=== PATIENT | male | born 1995 | race Caucasian/White ===

== ENCOUNTER 2017-04-10 11:17 | Emergency (ER) | payer OTHER ==
[~2017-04-10] VITALS: Ht 167.6 cm; Wt 60.0 kg
[2017-04-10] MEDS ORDERED: LIDOCAINE 1%, 20ML ONE (11:19)
[2017-04-10] MEDS ORDERED: HYDROmorphone 1 MG/ML, 1ML ONE ×2 (11:19→12:45)
[2017-04-10] MEDS ORDERED: ONDANSETRON 2MG/ML, 2ML ONE (11:19)
[2017-04-10] MEDS ORDERED: L.E.T SOLUTION TP ONE ×2 (11:27→11:30)
[2017-04-10] MEDS ORDERED: LIDOCAINE 1%, 20ML INFIL ONE (11:30)
[2017-04-10] MEDS ORDERED: ONDANSETRON 2MG/ML, 2ML IVPush ONE (11:30)
[2017-04-10] MEDS ORDERED: SODIUM CHLORIDE FLUSH 10ML SYR IVF ONE (11:30)
[2017-04-10] MEDS ORDERED: SODIUM CHLORIDE 0.9% 1,000ML IVBOLUS ONE (11:30)
[2017-04-10] MEDS: HYDROmorphone 1 MG/ML, 1ML IVPush PRN ×2 (11:57→12:51)
[2017-04-10] MEDS ORDERED: CEFAZOLIN PMX 1GM/50ML 50 ML ONE (11:58)
[2017-04-10] MEDS ORDERED: CEFAZOLIN PMX 1GM/50ML 50 ML IV ONE (12:00)
[2017-04-10] MEDS ORDERED: BACITRACIN ZINC OINT 500U/GM, 0.9 GM ONE ×2 (12:37→13:19)
[2017-04-10 14:06] VITALS: BP 140/88
[2017-04-11] MEDS ORDERED: HYDR-3240 PO (10:32)
[2017-04-11] MEDS ORDERED: CEPH-376 PO (10:32)
== END 2017-04-10 14:15 | disposition home or self-care (01) ==
LOC: MERGE 11:17 → ED 13:30
DX: S21.119A Laceration without foreign body of unspecified front wall of thorax without penetration into thoracic cavity, initial encounter (principal); W45.8XXA Other foreign body or object entering through skin, initial encounter; Y93.89 Activity, other specified; Y92.89 Other specified places as the place of occurrence of the external cause; Y99.8 Other external cause status
CPT/HCPCS: 13101; 13102; 71010; 93005; 96365; 96375; 96376; 99291; J0690; J1170; J2405; J7030

== ENCOUNTER 2017-04-11 10:20 | Emergency (ER) | payer OTHER ==
[~2017-04-11] VITALS: Ht 167.6 cm; Wt 62.0 kg
[~2017-04-11 10:20] MED LIST: ATROPINE SYRINGE 0.1 MG/ML, 10ML ONE
[2017-04-11] MEDS ORDERED: CEPH-376 PO (10:32)
[2017-04-11] MEDS ORDERED: HYDR-3240 PO (10:32)
[2017-04-11] MEDS ORDERED: IBUPROFEN 200 MG TABLET ONE (10:34)
[2017-04-11] MEDS ORDERED: HYDROmorphone 1 MG/ML, 1ML ONE (10:34)
[2017-04-11] MEDS ORDERED: ONDANSETRON ODT 4 MG ONE (10:35)
[2017-04-11] MEDS ORDERED: IBUPROFEN 200 MG TABLET PO ONE (11:00)
[2017-04-11] MEDS ORDERED: ONDANSETRON ODT 4 MG PO ONE (11:00)
[2017-04-11] MEDS ORDERED: HYDROmorphone 1 MG/ML, 1ML IM ONE (11:00)
[2017-04-11 11:37] VITALS: BP 99/59
== END 2017-04-11 11:50 | disposition home or self-care (01) ==
LOC: ED 10:34
DX: Z76.0 Encounter for issue of repeat prescription (principal); S21.111D Laceration without foreign body of right front wall of thorax without penetration into thoracic cavity, subsequent encounter
CPT/HCPCS: 96372; 99283; J0461; J1170; Q0162

== ENCOUNTER 2017-04-14 07:30 | Emergency (ER) | payer OTHER ==
[~2017-04-14] VITALS: Ht 167.6 cm; Wt 64.0 kg
[~2017-04-14 07:30] MED LIST changes: -ATROPINE SYRINGE 0.1 MG/ML, 10ML ONE; +CEPH-376 PO; +HYDR-3240 PO
[2017-04-14 07:33] VITALS: BP 107/69
== END 2017-04-14 09:11 | disposition home or self-care (01) ==
LOC: ED 09:00
DX: S21.119D Laceration without foreign body of unspecified front wall of thorax without penetration into thoracic cavity, subsequent encounter (principal)
CPT/HCPCS: 93005

== ENCOUNTER 2017-04-20 14:15 | Emergency (ER) | payer OTHER ==
[~2017-04-20] VITALS: Ht 167.6 cm; Wt 62.8 kg
[2017-04-20 14:16] VITALS: BP 106/69
== END 2017-04-20 16:01 | disposition home or self-care (01) ==
LOC: ED 15:56
DX: S21.111D Laceration without foreign body of right front wall of thorax without penetration into thoracic cavity, subsequent encounter (principal); X58.XXXD Exposure to other specified factors, subsequent encounter; Y92.89 Other specified places as the place of occurrence of the external cause; Y99.8 Other external cause status
CPT/HCPCS: 99282